=== PATIENT | female | born 1965 | race Caucasian/White ===

== ENCOUNTER 2019-02-27 08:14 | Inpatient (IN) | payer OTHER ==
[2019-02-27] VITALS (22 sets, daily range): BP systolic 129–180; BP diastolic 62–88; PULSE 53–80; RESP 16–24; Ht 154.9 cm; Wt 90.9 kg
[~2019-02-27] VITALS: Ht 154.9 cm; Wt 90.9 kg
[~2019-02-27 08:14] MED LIST: CEFAZOLIN 1 GM/50 ML (PMX) 50 ML IVPB ONE; SOD CHLORIDE 0.9% 1,000 ML IV SCH
--- NOTE | 2019-02-27 08:20 | PREAC ---
Date/Time of Note Date/Time of Note DATE: 02/27/19 TIME: 08:18 Anesthesia Eval and Record Evaluation Time Pre-Procedure Interview DATE: 02/27/19 TIME: 08:18 Age 53 Sex female NPO: 8 hrs Preoperative diagnosis Thyroid cancer Planned procedure Total thyroidectomy and right neck dissection and resection of left parathyroid adenoma Past Medical History Past Medical History: Includes Cardio: HTN (on Propranolol and Losartan (taken today). ), Dyslipidemia (On Statin ) Pulm: Other Musculoskeletal: Osteoarthritis (s/p left knee surgery ) Renal: Other (kidney stones) GI: Obesity Heme: Other (hx bilateral breast masses s/p surgery ) Surgery & Anesthesia Issues No known issue (pshx: left knee scope, bilateral breast mass excision, lap yovanny, colonoscopy, egd. ) Meds Anticoagulation: No Beta Mirian within 24 hr: Yes No Active Prescriptions or Reported Meds Current Medications Sodium Chloride 1,000 ml @ 75 mls/hr [id number] IV ; Start 02/27/19 at 06:00; Stop 02/27/19 at 18:00 Meds reviewed: Yes Allergies Coded Allergies: No Known Allergy (Unverified , 04/07/15) Allergies Reviewed: Yes Labs/Studies Labs Reviewed: Reviewed by anesthesiologist test: Negative Studies: ECG (NSR ), CXR (normal ) Pre-procedure Exam Airway: Adequate mouth opening, Adequate thyromental dist Mallampati: Mallampati II Teeth: Normal Lung: Normal Heart: Normal ASA Physical Status ASA physical status: 2 Emergency: None Planned Anesthetic General/MAC: ETT Planned Pain Management Parenteral pain med, Local by surgeon Pre-operative Attestations Prior to commencing anesthesia and surgery, the patient was re-evaluated, there was verification of: *The patient's identity *The results of appropriate recent lab work and preoperative vital signs *The above evaluation not changing prior to induction *Anesthetic plan, risk benefits, alternative and complications discussed with patient/family; questions answered; patient/family understands, accepts and wishes to proceed. ULYSSES SEARS February 27, 2019 08:20
[2019-02-27] MEDS ORDERED: CEFAZOLIN 1 GM INJ ONE (09:12)
[2019-02-27] MEDS ORDERED: LOSA50TA14 ORAL (09:12)
[2019-02-27] MEDS ORDERED: MIDAZOLAM 1 MG/ML 2 ML INJ ONE (09:12)
[2019-02-27] MEDS ORDERED: SUCCINYLCHOLINE CHLORIDE 100 MG/5 ML SYG IV ONE (09:12)
[2019-02-27] MEDS ORDERED: PROPOFOL 20 ML ONE ×2 (09:12→11:38)
[2019-02-27] MEDS ORDERED: LIDOCAINE 2% (SDV) 5 ML INJ ONE (09:12)
[2019-02-27] MEDS ORDERED: PROP10TA6 ORAL (09:14)
[2019-02-27] MEDS ORDERED: CHOL200056 ORAL (09:14)
[2019-02-27] MEDS ORDERED: ATOR10TA65 ORAL (09:14)
[2019-02-27] MEDS ORDERED: HYDROmorphONE 2 MG/ML SYG ONE (09:16)
[2019-02-27] MEDS ORDERED: LIDOCAINE 4% (MPF) 5 ML INJ ONE (09:17)
[2019-02-27] MEDS ORDERED: PROPOFOL 40 ML ONE (09:52)
[2019-02-27] MEDS ORDERED: METOCLOPRAMIDE 10 MG INJ ONE (10:33)
[2019-02-27] MEDS ORDERED: DEXAMETHASONE 4 MG/ML 5 ML INJ ONE (10:33)
[2019-02-27] MEDS ORDERED: FAMOTIDINE 20 MG INJ ONE (10:33)
[2019-02-27] MEDS ORDERED: ONDANSETRON 4 MG INJ ONE (10:33)
[2019-02-27] MEDS ORDERED: EPHEDrine 25 MG/5 ML SYG ONE (10:49)
[2019-02-27] MEDS ORDERED: MIDAZOLAM 1 MG/ML 2 ML INJ IV PRN (11:30)
[2019-02-27] MEDS ORDERED: HYDROmorphONE 1 MG/5 ML IV SYRINGE IV PRN ×3 (11:30)
[2019-02-27] MEDS ORDERED: ONDANSETRON 4 MG INJ IV PRN ×2 (11:30→14:00)
[2019-02-27] MEDS ORDERED: MEPERIDINE 25 MG INJ IV PRN (11:30)
[2019-02-27] MEDS ORDERED: ALBUTEROL 0.083% (NEB) 2.5 MG/3 ML AMP HHN PRN (11:30)
[2019-02-27] MEDS ORDERED: OXYCODONE/ACETAMINOPHEN (5/325) TAB PO PRN ×2 (11:30)
[2019-02-27] MEDS ORDERED: hydrALAzine 20 MG INJ IV PRN ×2 (11:30→17:00)
--- NOTE | 2019-02-27 13:38 | PAC ---
Date/Time of Note Date/Time of Note DATE: 02/27/19 TIME: 13:36 Post-Anesthesia Notes Post-Anesthesia Note Last documented vital signs post 123/64 hr 65 spo2 96% rr 16 temp 97.0 Vital Signs Date Temp Pulse Resp B/P (MAP) Pulse Ox O2 O2 Flow FiO2 Time Delivery Rate 02/27/19 97.2 53 16 129/62 97 Room Air 09:36 (84) Activity: WNL Respiratory function: WNL Cardiovascular function: WNL Mental status: Baseline Pain reasonably controlled: Yes Hydration appropriate: Yes Nausea/Vomiting absent: Yes ULYSSSE SEARS February 27, 2019 13:38
--- NOTE | 2019-02-27 13:47 | SIPON ---
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
[2019-02-27] MEDS: ACETAMINOPHEN 1000MG/100ML IV 100 ML IVPB PRN ×2 (14:52→21:52)
[2019-02-27] MEDS: morphine 2 MG INJ IV PRN ×3 (16:06→23:15)
--- NOTE | 2019-02-27 16:30 | OPR ---
DATE OF OPERATION: 02/27/2019 PREOPERATIVE DIAGNOSES: 1. Papillary thyroid cancer. 2. Left lower pole parathyroid adenoma. PROCEDURE: Total thyroidectomy resection of left lower pole parathyroid adenoma and left modified ne ck dissection. INDICATIONS FOR PROCEDURE: The patient presented to my office after having undergone a physical exam by her primary care physician and workup for a left lobe thyroid mass workup including biopsy reveal ed papillary cancer. There was radiographic evidence of lymph node metastases. In addition, the pat ient was found to have a parathyroid adenoma. Therefore, the patient was counseled on the need for s urgery. She consented and was scheduled for surgery. DESCRIPTION OF PROCEDURE: The patient was brought to the operating theater, placed under general end otracheal tube anesthesia. The neck was placed in the extended position and was prepped and draped i n the usual sterile fashion. Planned incision was demarcated approximately 2 cm above the clavicles and extending approximately 5 cm on either side of the midline. Incision was carried out with 15 ev de scalpel. Subcutaneous tissue was dissected with cautery. The platysma muscles were then transect ed bilaterally, also using cautery. Subplatysmal flaps were then created using cautery, first inferi luisa to the level of the clavicles and then superiorly to the level of the hyoid bone. The Ramos r etractor was then placed and the median raphe was then incised longitudinally to allow exposure of th e underlying strap muscles. Attention was first directed to the left side. With meticulous dissecti on, the strap muscles were dissected off of the thyroid gland. There was obvious thyroid mass consis tent malignancy. The left thyroid lobe was then mobilized towards midline. This was accomplis hed by first directed attention to the left inferior pole and sequentially transecting it with the Li gaSure device. At this point, Dr. Prieto identified what appeared to be a parathyroid adenoma. It wa s meticulously resected with combination of cautery and the LigaSure device. It was removed. Intrao perative analysis performed by attending pathologist, Ramiro Doyle, confirm that it was consistent with a parathyroid adenoma. Further dissection of the left lobe took place. The superior pole was then mobilized in sequential fashion. The recurrent laryngeal nerve was identified, and using nerve monitoring, was kept out of harm's way, while the entire left lobe of the thyroid was mobilized. The inherent ligament of Mcgarry between the thyroid isthmus and the trachea was then dissected. At this point, attention was directed to the right lobe of the thyroid. The strap muscles were meticulously dissected off of it. The right lobe was mobilized towards the midline with sequential dissection and using the LigaSure device. The superior pole was mobilized. Subsequently, the inferior pole was al so mobilized using the LigaSure device. The right recurrent laryngeal nerve was identified throughou t its course and confirmed with nerve monitoring and kept out of harm's way. Additionally, the right inferior and superior parathyroid glands were identified and kept out of harm's way. At this point, final connective tissue attachments to the trachea were transected with cautery. Specimen was remov ed, oriented and sent for permanent pathologic analysis. Efforts were then made to attempt to identi fy the lymph node metastases on the left side. The anterior belly of the sternocleidomastoid muscle was then mobilized with combination of blunt dissection and cautery. This exposed the underlying jug ular vein. There was a very large abnormal lymph node on top of the jugular vein. It was removed wi th meticulous dissection and sent for permanent pathologic analysis. Dr. Prieto then inspected. Keron tional leydi regions, but definite pathologic nodes were not noted. Therefore, no further nodes were taken. The wound was then irrigated. Minimal bleeding was controlled with cautery, and the decisio n was then made to place Dom[place] drains in both the left and right thyroid resection beds. They were secured to the skin of the thorax with 2-0 nylon suture. The median raphe was then reapproximated w ith 4-0 Vicryl sutures in interrupted fashion. Subsequently, the platysma muscles were also reapprox imated with 4-0 Vicryl sutures in interrupted fashion and then final skin approximation was accomplis hed with 5-0 PDS sutures in subcuticular fashion. The patient tolerated the procedure well. Total b lood loss approximately 30 mL. There were no complications and the patient was transported in stable condition to the recovery room. Dictated By: ROX PRIETO MD TL/FRANDY Conf#: [id number] DID#: [id number] CC: SHANNON DOHERTY MD;*EndCC*
[2019-02-27] MEDS ORDERED: ALBUTEROL/IPRATROPIUM (NEB) 3 ML AMP HHN PRN (17:00)
[2019-02-27] MEDS: D5W-0.45 NACL + KCL 20 MEQ 1,000 ML IV SCH ×2 (20:13→21:47)
[2019-02-27] MEDS: PROPRANOLOL 10 MG TAB PO SCH (20:18)
[2019-02-27] MEDS: ATORVASTATIN 20 MG TAB PO SCH (20:23)
--- NOTE | 2019-02-27 20:59 | HP ---
DATE OF ADMISSION: 02/27/2019 CHIEF COMPLAINT: Neck pain. HISTORY OF PRESENT ILLNESS: The patient is a 53-year-old female with history of hypertension, dyslip idemia who was seen by Dr. Prieto as an outpatient for left lobe thyroid mass. Workup including biops y revealed papillary cancer. The patient also had evidence of lymph node metastasis. The patient wa s incidentally also found to have parathyroid adenoma. The patient was brought in to hospital today and underwent total thyroidectomy resection of left lower pole parathyroid adenoma and left modified neck dissection. The patient postoperatively had some oozing and a dressing was reinforced by Dr. Sa grier. The patient denies any chest pain or shortness of breath. No reported fever or chills. No re ported vomiting. No reported nausea. No reported abdominal pain. No reported numbness, tingling, o r any weakness in any extremity. REVIEW OF SYSTEMS: Other than postoperative pain, the rest of the review of systems was unremarkable . PAST SURGICAL HISTORY: The patient is status post bilateral breast surgeries and pathology for both surgeries turned out to be negative for cancer. The patient is status post laparoscopic cholecystect darrell, status post bilateral knee surgeries, most likely arthroscopic, details not available. ALLERGIES: NONE. FAMILY HISTORY: Negative for CA. MEDICATIONS: Reviewed. PHYSICAL EXAMINATION: GENERAL: The patient is awake, alert. VITAL SIGNS: Temperature 97, pulse 62, blood pressure 152/80, respiration 18, O2 saturation 98% on 3 L nasal cannula. HEENT: No eye discharge or redness. Conjunctivae are normal. Oropharynx examination was deferred. NECK: The patient has a dressing. CHEST: Fairly clear. CARDIOVASCULAR: S1, S2 normal. ABDOMEN: Soft, nondistended, nontender. EXTREMITIES: No edema. NEUROLOGIC: The patient is awake, alert, fairly oriented with no gross focal deficit. LABORATORY DATA: Glucose 74, sodium 137, potassium 4.9, BUN 13, creatinine 0.7. PT, PTT done as an outpatient was normal. WBC 7.4, hemoglobin 13.8. EKG normal sinus rhythm with no acute ST or T oneill ges. Chest x-ray unremarkable. IMPRESSION: 1. Thyroid cancer and parathyroid adenoma status post total thyroidectomy with resection of left low er lobe parathyroid adenoma and left modified neck dissection. 2. Hypertension. 3. Dyslipidemia. PLAN: The patient admitted to medical floor. The patient will be kept n.p.o., will be given IV flui d and SCD for DVT prophylaxis. We will add hydralazine 10 mg q.4 hours p.r.n. for elevated blood pre ssure. The patient will be resumed on Cozaar, Inderal and Lipitor as at home once she is able to ericka e p.o. We will monitor electrolytes and calcium. We will continue to follow. Further recommendatio ns will depend upon patient's hospital course. Dictated By: SHANNON DOHERTY MD AB/NTS Conf#: [id number] DID#: [id number] CC: ROX PRIETO MD;*EndCC*
[2019-02-28] VITALS: BP 160/83; PULSE 68; RESP 20
[2019-02-28] MEDS: morphine 2 MG INJ IV PRN (00:38)
[2019-02-28 02:20] VITALS: BP 142/74; PULSE 66; RESP 20
[2019-02-28] MEDS: D5W-0.45 NACL + KCL 20 MEQ 1,000 ML IV SCH ×3 (05:44→21:47)
--- NOTE | 2019-02-28 05:52 | PN ---
Date/Time of Note Date/Time of Note DATE: 02/28/19 TIME: 05:49 Assessment/Plan VTE Prophylaxis Risk score (from Nsg)>0 risk: 3 SCD applied (from Nsg): Yes Lines/Catheters IV Catheter Type (from Nrsg): Saline Lock Assessment/Plan Assessment/Plan - Thyroid cancer and parathyroid adenoma - status post total thyroidectomy with resection of left lower lobe parathyroid adenoma and left modified neck dissection. - per surgery - n.p.o. - IV fluid and - monitor electrolytes and calcium - Hypertension. - hydralazine 10 mg q.4 hours p.r.n. for elevated blood pressure. - patient will be resumed on Cozaar, Inderal and Lipitor as at home once she is able to take p.o. - Dyslipidemia. - SCD for DVT prophylaxis. We will continue to follow. Further recommendations will depend upon patient's hospital course. Result Diagram: 02/28/19 0431 02/28/19 0431 Results 24hrs Laboratory Tests Test 02/27/19 17:53 02/28/19 00:33 02/28/19 04:31 Calcium Level 9.8 8.6 8.6 White Blood Count 10.8 # Red Blood Count 4.84 Hemoglobin 12.9 Hematocrit 40.0 Mean Corpuscular Volume 82.6 Mean Corpuscular Hemoglobin 26.7 L Mean Corpuscular Hemoglobin Concent 32.3 Red Cell Distribution Width 15.5 H Platelet Count 327 Mean Platelet Volume 9.6 # Immature Granulocytes % 0.400 Neutrophils % 78.0 H Lymphocytes % 10.1 L Monocytes % 11.3 H Eosinophils % 0.0 Basophils % 0.2 Nucleated Red Blood Cells % 0.0 Immature Granulocytes # 0.040 H Neutrophils # 8.5 H Lymphocytes # 1.1 Monocytes # 1.2 H Eosinophils # 0.0 Basophils # 0.0 Nucleated Red Blood Cells # 0.0 Sodium Level 138 Potassium Level 4.8 Chloride Level 106 Carbon Dioxide Level 23 Anion Gap 9 Blood Urea Nitrogen 12 Creatinine 0.66 Est Glomerular Filtrat Rate mL/min > 60 Glucose Level 125 Subjective 24 Hr Interval Summary Free Text/Dictation c/o dysphagia; Neck dressing DDI Exam/Review of Systems Exam Vitals Vital Signs Date Temp Pulse Resp B/P (MAP) Pulse Ox O2 O2 Flow FiO2 Time Delivery Rate 02/28/19 98.2 66 20 142/74 93 Nasal 02:20 (96) Cannula 02/27/19 2.0 20:00 Intake and Output 02/27/19 02/27/19 02/28/19 1515:00 23:00 07:00 IntakeIntake Total 1700 ml 200 ml OutputOutput Total 10 ml 300 ml 250 ml BalanceBalance 1690 ml -100 ml -250 ml Results Results 24hrs Laboratory Tests Test 02/27/19 17:53 02/28/19 00:33 02/28/19 04:31 Calcium Level 9.8 8.6 8.6 White Blood Count 10.8 # Red Blood Count 4.84 Hemoglobin 12.9 Hematocrit 40.0 Mean Corpuscular Volume 82.6 Mean Corpuscular Hemoglobin 26.7 L Mean Corpuscular Hemoglobin Concent 32.3 Red Cell Distribution Width 15.5 H Platelet Count 327 Mean Platelet Volume 9.6 # Immature Granulocytes % 0.400 Neutrophils % 78.0 H Lymphocytes % 10.1 L Monocytes % 11.3 H Eosinophils % 0.0 Basophils % 0.2 Nucleated Red Blood Cells % 0.0 Immature Granulocytes # 0.040 H Neutrophils # 8.5 H Lymphocytes # 1.1 Monocytes # 1.2 H Eosinophils # 0.0 Basophils # 0.0 Nucleated Red Blood Cells # 0.0 Sodium Level 138 Potassium Level 4.8 Chloride Level 106 Carbon Dioxide Level 23 Anion Gap 9 Blood Urea Nitrogen 12 Creatinine 0.66 Est Glomerular Filtrat Rate mL/min > 60 Glucose Level 125 Medications Medication Current Medications Ondansetron HCl (Zofran Inj) 4 mg Q6H PRN IV NAUSEA AND/OR VOMITING Last administered on 02/27/19at 16:06; Admin Dose 4 MG; Start 02/27/19 at 14:00 Potassium Chloride/Dextrose/ Sod Cl 1,000 ml @ 125 mls/hr Q8H IV Last administered on 02/28/19at 05:44; Admin Dose 125 MLS/HR; Start 02/27/19 at 13:47 Morphine Sulfate (morphine) 2 mg Q1H PRN IV PAIN Last administered on 02/28/19at 00:38; Admin Dose 2 MG; Start 02/27/19 at 14:00 Acetaminophen 100 ml @ 400 mls/hr Q6H PRN IVPB PAIN Last administered on 02/27/19at 21:52; Admin Dose 400 MLS/HR; Start 02/27/19 at 14:00; Stop 02/28/19 at 13:59 Hydralazine HCl (Apresoline) 10 mg Q4H PRN IV ELEVATED BLOOD PRESSURE; Start 02/27/19 at 17:00 Albuterol/ Ipratropium (Duoneb) 3 ml Q6H RESP THERAPY PRN HHN SHORTNESS OF BREATH; Start 02/27/19 at 17:00 Atorvastatin Calcium (Lipitor) 20 mg QHS PO ; Start 02/27/19 at 21:00 Losartan Potassium (Cozaar) 50 mg DAILY PO ; Start 02/28/19 at 09:00 Propranolol HCl (Inderal) 10 mg BID PO ; Start 02/27/19 at 21:00 Cholecalciferol (Vitamin D) 2,000 unit DAILY PO ; Start 02/28/19 at 09:00 MICHEL IRVIN February 28, 2019 05:52
[2019-02-28 07:43] VITALS: BP 146/77; PULSE 62; RESP 19
[2019-02-28] MEDS: CHOLECALCIFEROL 2,000 UNIT CAP PO SCH (08:50)
[2019-02-28] MEDS: PROPRANOLOL 10 MG TAB PO SCH ×2 (08:50→21:09)
[2019-02-28] MEDS: LOSARTAN 50 MG TAB PO SCH (08:50)
[2019-02-28] MEDS ORDERED: NON-FORMULARY/PATIENT OWN MED (Cholecalciferol (Vitamin D3) (Vitamin D-3) 1 TAB) ORAL SCH (09:00)
[2019-02-28] MEDS: RANITIDINE 150 MG TAB PO SCH ×2 (14:41→21:06)
--- NOTE | 2019-02-28 17:55 | PN ---
DATE: 02/28/2019 Postop day #, status post total thyroidectomy, left lower pole parathyroid adenoma excision, also rem oval of the suspicious lymph node from the left side. SUBJECTIVE: The patient states that when she tried to drink some fluids and have some jello, she fel t that the food has a tendency to come out from her nose, but of course it did not come out. No vomi ting, no aspiration. OBJECTIVE: GENERAL: Awake, alert, oriented, sitting in the bed. VITAL SIGNS: Temperature maximum today 98.2, heart rate 68, respirations 20, blood pressure 142/74, saturation 95% nasal cannula 2 liters. HEART: Clinically, heart regular. LUNGS: Clear. ABDOMEN: Soft. No respiratory distress. Dressing which was a bulky dressing which was applied yest erday afternoon after patient was found by the nurses that had some oozing of blood from the incision in the neck and of course, there is 2 Domonique drains left inside the wound and brought out from the middle of the incision and the [place] drains were affixed to the skin. LABORATORY DATA: Today, again, the dressing was changed by myself. There is 4 x 4's, which has been bloody-stained due to oozing of blood from the wound through the [place] drains. This dressing was changed completely, but the wound is clean and there is no swelling; therefore, there is no evidence of hematoma in the wound. PLAN: We will start advancing the patient's diet from full liquid to soft diet and also we will watc h the patient for possible further bleeding; therefore, the patient is going to be on the floor february at least 1 more day. Also, I ordered another calcium to be done at 4 o'clock. Since the patient h ad a large parathyroid adenoma, it was removed and ____ which was done since last night. On admissio n, calcium was 9.8, then later on is 8.6 and at 4:30 a.m. is 8.8, so we are going to 4:00 again. Dictated By: KAVON PEÑA MD PS/NTS Conf#: [id number] DID#: [id number]
[2019-02-28] MEDS: ACETAMINOPHEN 500 MG TAB PO PRN (18:49)
[2019-02-28 18:50] VITALS: BP 111/72; PULSE 79; RESP 18
[2019-02-28] MEDS ORDERED: ACETAMINOPHEN 500 MG TAB PO PRN (19:00)
[2019-02-28 19:20] VITALS: BP 134/70; PULSE 76; RESP 20
[2019-02-28] MEDS: ATORVASTATIN 20 MG TAB PO SCH (21:06)
[2019-03-01 03:22] VITALS: BP 166/86; PULSE 61; RESP 18
[2019-03-01] MEDS: ACETAMINOPHEN 500 MG TAB PO PRN (03:23)
[2019-03-01] MEDS: D5W-0.45 NACL + KCL 20 MEQ 1,000 ML IV SCH (05:39)
[2019-03-01 06:10] VITALS: BP 157/76
[2019-03-01 07:29] VITALS: BP 146/71; PULSE 57; RESP 16
[2019-03-01] MEDS: PROPRANOLOL 10 MG TAB PO SCH (08:24)
[2019-03-01] MEDS: LOSARTAN 50 MG TAB PO SCH (08:24)
[2019-03-01] MEDS: RANITIDINE 150 MG TAB PO SCH (08:25)
[2019-03-01] MEDS: CHOLECALCIFEROL 2,000 UNIT CAP PO SCH (08:25)
--- NOTE | 2019-03-01 12:22 | PN ---
Date/Time of Note Date/Time of Note DATE: 03/01/19 TIME: 12:21 Assessment/Plan VTE Prophylaxis Risk score (from Ns)>0 risk: 4 SCD applied (from Nsg): Yes Pharmacological prophylaxis: LMWH Lines/Catheters IV Catheter Type (from Nrsg): Peripheral IV Assessment/Plan Hospital Course - Thyroid cancer and parathyroid adenoma - status post total thyroidectomy with resection of left lower lobe parathyroid adenoma and left modified neck dissection. - per surgery - n.p.o. - IV fluid and - monitor electrolytes and calcium - Hypertension. - hydralazine 10 mg q.4 hours p.r.n. for elevated blood pressure. - patient will be resumed on Cozaar, Inderal and Lipitor as at home once she is able to take p.o. - Dyslipidemia. - SCD for DVT prophylaxis. Result Diagram: 03/01/19 0428 03/01/19 0428 Results 24hrs Laboratory Tests Test 02/28/19 15:56 03/01/19 04:28 Calcium Level 8.9 8.9 White Blood Count 7.9 # Red Blood Count 4.35 Hemoglobin 11.7 L Hematocrit 36.5 L Mean Corpuscular Volume 83.9 Mean Corpuscular Hemoglobin 26.9 L Mean Corpuscular Hemoglobin Concent 32.1 Red Cell Distribution Width 16.1 H Platelet Count 296 Mean Platelet Volume 10.0 Immature Granulocytes % 0.300 Neutrophils % 49.0 Lymphocytes % 39.3 Monocytes % 10.5 Eosinophils % 0.4 Basophils % 0.5 Nucleated Red Blood Cells % 0.0 Immature Granulocytes # 0.020 Neutrophils # 3.9 Lymphocytes # 3.1 H Monocytes # 0.8 Eosinophils # 0.0 Basophils # 0.0 Nucleated Red Blood Cells # 0.0 Sodium Level 142 Potassium Level 4.3 Chloride Level 111 H Carbon Dioxide Level 24 Anion Gap 7 Blood Urea Nitrogen 15 Creatinine 0.70 Est Glomerular Filtrat Rate mL/min > 60 Glucose Level 91 Subjective 24 Hr Interval Summary Free Text/Dictation Patient has some pain in neck but controlled Exam/Review of Systems Exam Vitals Vital Signs Date Temp Pulse Resp B/P (MAP) Pulse Ox O2 O2 Flow FiO2 Time Delivery Rate 03/01/19 98.0 57 16 146/71 100 Room Air 07:29 (96) 02/27/19 2.0 20:00 Intake and Output 02/28/19 02/28/19 03/01/19 1515:00 23:00 07:00 IntakeIntake Total 1140 ml 250 ml 750 ml BalanceBalance 1140 ml 250 ml 750 ml Constitutional: well developed Head: normocephalic, atraumatic Neck: supple Respiratory: clear to auscultation Cardiovascular: regular rate and rhythm Gastrointestinal: soft, non-tender Extremities: normal pulses Results Results 24hrs Laboratory Tests Test 02/28/19 15:56 03/01/19 04:28 Calcium Level 8.9 8.9 White Blood Count 7.9 # Red Blood Count 4.35 Hemoglobin 11.7 L Hematocrit 36.5 L Mean Corpuscular Volume 83.9 Mean Corpuscular Hemoglobin 26.9 L Mean Corpuscular Hemoglobin Concent 32.1 Red Cell Distribution Width 16.1 H Platelet Count 296 Mean Platelet Volume 10.0 Immature Granulocytes % 0.300 Neutrophils % 49.0 Lymphocytes % 39.3 Monocytes % 10.5 Eosinophils % 0.4 Basophils % 0.5 Nucleated Red Blood Cells % 0.0 Immature Granulocytes # 0.020 Neutrophils # 3.9 Lymphocytes # 3.1 H Monocytes # 0.8 Eosinophils # 0.0 Basophils # 0.0 Nucleated Red Blood Cells # 0.0 Sodium Level 142 Potassium Level 4.3 Chloride Level 111 H Carbon Dioxide Level 24 Anion Gap 7 Blood Urea Nitrogen 15 Creatinine 0.70 Est Glomerular Filtrat Rate mL/min > 60 Glucose Level 91 Medications Medication Current Medications Ondansetron HCl (Zofran Inj) 4 mg Q6H PRN IV NAUSEA AND/OR VOMITING Last administered on 02/27/19at 16:06; Admin Dose 4 MG; Start 02/27/19 at 14:00 Potassium Chloride/Dextrose/ Sod Cl 1,000 ml @ 125 mls/hr Q8H IV Last administered on 02/28/19at 14:41; Admin Dose 125 MLS/HR; Start 02/27/19 at 13:47 Morphine Sulfate (morphine) 2 mg Q1H PRN IV PAIN Last administered on 02/28/19at 00:38; Admin Dose 2 MG; Start 02/27/19 at 14:00 Hydralazine HCl (Apresoline) 10 mg Q4H PRN IV ELEVATED BLOOD PRESSURE; Start 02/27/19 at 17:00 Albuterol/ Ipratropium (Duoneb) 3 ml Q6H RESP THERAPY PRN HHN SHORTNESS OF BREATH; Start 02/27/19 at 17:00 Atorvastatin Calcium (Lipitor) 20 mg QHS PO Last administered on 02/28/19 21:06; Admin Dose 20 MG; Start 02/27/19 at 21:00 Losartan Potassium (Cozaar) 50 mg DAILY PO Last administered on 03/01/19 08:24; Admin Dose 50 MG; Start 02/28/19 at 09:00 Propranolol HCl (Inderal) 10 mg BID PO Last administered on 03/01/19 08:24; Admin Dose 10 MG; Start 02/27/19 at 21:00 Cholecalciferol (Vitamin D) 2,000 unit DAILY PO Last administered on 03/01/19 08:25; Admin Dose 2,000 UNIT; Start 02/28/19 at 09:00 Ranitidine HCl (Zantac) 150 mg BID PO Last administered on 03/01/19 08:25; Admin Dose 150 MG; Start 02/28/19 at 14:00 Acetaminophen (Tylenol Tab) 1,000 mg Q6H PRN PO MILD PAIN(1-3)OR ELEVATED TEMP Last administered on 03/01/19 03:23; Admin Dose 1,000 MG; Start 02/28/19 at 19:00 FUAD MENDOZA March 01, 2019 12:22
--- NOTE | 2019-03-01 15:31 | PN ---
DATE: 03/01/2019 Postop day #2 status post total thyroidectomy and left modified radical neck dissection and removal o f the left pole parathyroid adenoma. SUBJECTIVE: Feels much better, has tolerated food. No aspiration OR regurgitation, no vomiting. Pa in is coming under control with Tylenol. Has been out of bed and walking around, bowel movement. OBJECTIVE: GENERAL: Alert, awake, oriented x3. VITAL SIGNS: Temperature maximum 98, heart rate 57, respirations 16, blood pressure 176/71, saturati on 95-100% room air. LABORATORY DATA: Sodium, potassium, BUN, creatinine WBC 7000 neutrophils. Hemoglobin , h ematocrit is 6.5. Voice is normal. Dressing on the neck and thyroid incision area was removed. The re is very minimal oozing of bloody fluid which was stained some spots onto sponges. [place] drains are in place. Decision was made to discharge the patient today. Therefore, [place] drains were romero sridhar. Again, dry sterile bulky dressing was applied over the neck. PLAN: The patient to call Dr. Prieto' office on Sunday, make appointment for followup on Sunday or . Patient will take Tylenol for pain control. From surgical point of view, the patient can be discharged home today. Follow with by Dr. Prieto next Sunday or Sunday. Dictated By: KAVON PEÑA MD PS/FRANDY Conf#: [id number] DID#: [id number]
--- NOTE | 2019-03-01 17:17 | DS ---
Date/Time of Note Date/Time of Note DATE: 03/01/19 TIME: 17:16 Discharge Summary Admission/Discharge Info Admit Date/Time February 27, 2019 at 08:14 Discharge Date/Time March 01, 2019 at 15:05 Discharge Diagnosis 1. Thyroid cancer and parathyroid adenoma status post total thyroidectomy with resection of left lower lobe parathyroid adenoma and left modified neck dissection. 2. Hypertension. 3. Dyslipidemia. Patient Condition: Fair Consults General surgery Procedures thyroidectomy Hx of Present Illness Patient with thyroid cancer and parathyroid adenoma comes in for total thyroidectomy. Hospital Course Patient with thyroid cancer and parathyroid adenoma comes in for total thyroidectomy. Patient tolerated the procedure and when felt to be stable per surgery, she was sent home. - Thyroid cancer and parathyroid adenoma - status post total thyroidectomy with resection of left lower lobe parathyroid adenoma and left modified neck dissection. - per surgery - n.p.o. - IV fluid and - monitor electrolytes and calcium - Hypertension. - hydralazine 10 mg q.4 hours p.r.n. for elevated blood pressure. - patient will be resumed on Cozaar, Inderal and Lipitor as at home once she is able to take p.o. - Dyslipidemia. - SCD for DVT prophylaxis. Home Meds Reported Medications Cholecalciferol (Vitamin D3) (Vitamin D-3) 2,000 Unit Tablet, 1 TAB ORAL DAILY 02/27/19 Propranolol Hcl* (Propranolol Hcl*) 10 Mg Tablet, 1 TAB ORAL BID 02/27/19 Atorvastatin (Atorvastatin) 10 Mg Tablet, 1 TAB ORAL QHS 02/27/19 Losartan Potassium* (Losartan Potassium*) 50 Mg Tablet, 1 TAB ORAL DAILY 02/27/19 Primary Care Provider Care Physician No Primary Pending Labs Laboratory Tests Test 03/01/19 04:28 White Blood Count 7.9 10^3/ul (4.8-10.8) Red Blood Count 4.35 10^6/ul (4.20-5.40) Hemoglobin 11.7 g/dl (12.0-16.0) Hematocrit 36.5 % (37.0-47.0) Mean Corpuscular Volume 83.9 fl (82.0-101.0) Mean Corpuscular Hemoglobin 26.9 pg (29.0-33.0) Mean Corpuscular Hemoglobin Concent 32.1 g/dl (32.0-37.0) Red Cell Distribution Width 16.1 % (11.5-14.5) Platelet Count 296 10^3/UL (140-415) Mean Platelet Volume 10.0 fl (7.4-10.4) Immature Granulocytes % 0.300 % (0.001-0.429) Neutrophils % 49.0 % (39.0-77.0) Lymphocytes % 39.3 % (15.0-51.0) Monocytes % 10.5 % (0.0-11.0) Eosinophils % 0.4 % (0.0-7.0) Basophils % 0.5 % (0.0-2.0) Nucleated Red Blood Cells % 0.0 /100WBC (0.0-0.0) Immature Granulocytes # 0.020 10^3/ul (0.0-0.031) Neutrophils # 3.9 10^3/ul (1.6-7.5) Lymphocytes # 3.1 10^3/ul (0.8-2.9) Monocytes # 0.8 10^3/ul (0.3-0.9) Eosinophils # 0.0 10^3/ul (0.0-0.5) Basophils # 0.0 10^3/ul (0.0-0.1) Nucleated Red Blood Cells # 0.0 10^3/ul (0.0-0.0) Sodium Level 142 mmol/L (135-144) Potassium Level 4.3 mmol/L (3.5-5.1) Chloride Level 111 mmol/L (97-110) Carbon Dioxide Level 24 mmol/L (21-31) Anion Gap 7 (5-13) Blood Urea Nitrogen 15 mg/dl (7-20) Creatinine 0.70 mg/dl (0.44-1.00) Est Glomerular Filtrat Rate mL/min > 60 mL/min (>60) Glucose Level 91 mg/dl (70-220) Calcium Level 8.9 mg/dl (8.4-10.2) FUAD MENDOZA March 01, 2019 17:17
== END 2019-03-01 15:05 | disposition home or self-care (01) | DRG 626 ==
LOC: REC 08:14 → MS1 14:15
PROVIDERS: ADMIT Surgery Surgical Oncology; ATTEND Surgery Surgical Oncology
PROC: 07B20ZX Excision of Left Neck Lymphatic, Open Approach, Diagnostic (ICD-10-PCS; 2019-02-27)
PROC: 0GTP0ZZ Resection of Left Inferior Parathyroid Gland, Open Approach (ICD-10-PCS; 2019-02-27)
PROC: 0GTK0ZZ Resection of Thyroid Gland, Open Approach (ICD-10-PCS; principal; 2019-02-27 10:30)
DX: C73 Malignant neoplasm of thyroid gland (principal); C77.0 Secondary and unspecified malignant neoplasm of lymph nodes of head, face and neck; D35.1 Benign neoplasm of parathyroid gland; I10 Essential (primary) hypertension; E78.5 Hyperlipidemia, unspecified
CPT/HCPCS: 80048; 82310; 84703; 85025; 88305; J0131; J0360; J0690; J1100; J1170; J2250; J2270; J2405; J2765; J3480